=== PATIENT | female | born 1990 | race Two or more races ===

== ENCOUNTER 2020-07-05 18:46 | Emergency (ER) | payer MEDICAID, OTHER ==
[~2020-07-05] VITALS: Ht 167.6 cm; Wt 84.4 kg
[2020-07-05 18:50] VITALS: BP 132/80
== END 2020-07-06 13:45 | disposition home or self-care (01) ==
LOC: ER 18:46
DX: R50.9 Fever, unspecified (principal); J37.0 Chronic laryngitis; Z20.828 Contact with and (suspected) exposure to other viral communicable diseases
CPT/HCPCS: 36415; 71045; 87426; 93005